=== PATIENT | female | born 1970 | race Caucasian/White ===

== ENCOUNTER → 2017-03-11 | Day surgery (SDC) | payer OTHER ==
[~2017-03-11] MED LIST: KETOROLAC TROMETHAMINE 30 MG/ML (IVP) VIAL IV PUSH ONE; LACTATED RINGER'S 1,000 ML BAG IV ONE; LORT5TAB PO; MIDAZOLAM HCL 2 MG/2 ML VIAL ONE; NAPR250T57 PO; ONDANSETRON HCL 4 MG/2 ML VIAL IV PUSH ONE; PRENTAB72 PO; PROPOFOL 200 MG/20 ML AMP IV ONE; SODIUM CHLORIDE 0.9% 100 ML MINIBAG IV ONE; SODIUM CHLORIDE 0.9% SOLN 1000 ML BTL ONE; TAB-TAB PO; VITA100018 PO; ceFAZolin INJ 1,000 MG VIAL ONE
--- NOTE | 2017-03-11 12:15 | MP ---
cc: ABHINAV ROQUE M.D. DATE OF SURGERY: 03/11/2017 PREOPERATIVE DIAGNOSIS Menorrhagia, submucous uterine fibroid, dysmenorrhea. PROCEDURE Exam under anesthesia. Dilatation and curettage. Hysteroscopic myomectomy with the MyoSure device. Endometrial ablation using the NovaSure device. POSTOPERATIVE DIAGNOSIS Menorrhagia, submucous uterine fibroid, dysmenorrhea. SURGEON Merrick ANESTHESIA General by LMA ESTIMATED BLOOD LOSS None. FLUID DEFICIT 990 cc. OPERATIVE FINDINGS The patient had a posterior 2.5 cm submucous myoma, otherwise no focal abnormality. Endometrial lining was polypoid and homogeneous. Uterus was slightly retroverted. INDICATION FOR PROCEDURE Patient with increasing frequency of heavy painful periods over the last year. Ultrasound obtained revealed a solitary lesion with an endometrial cavity suggesting submucous myoma. Options were discussed. Patient elected for hysteroscopic resection with ablation of the endometrial cavity. The patient received Ancef 2 grams prophylactically. PROCEDURE DESCRIPTION The patient was taken to the operating room in stable condition, underwent general anesthesia with LMA placement. She was carefully positioned in the dorsal lithotomy position using candy-cane stirrups. She had sequentials placed on lower extremities for VTE prophylaxis. She was prepped and draped and a timeout was conducted and agreed by all present in the room. A bivalve speculum was used to examine the cervix after the patient was adequately prepped and draped and endocervical curettings were obtained and sent separately. The cervix had evidence of previous cold knife cone biopsy but no focal abnormality. The cervix was secured with a single-tooth tenaculum and a uterine sound was placed gently to about 9 cm. The cervix was then dilated. A 5 mm hysteroscope was used to examine the cavity. The findings were described above. Resection of the posterior myoma was accomplished without difficulty. This was followed by use of the NovaSure device, generator was set at 6.0 and 3.0 dimensions generating a wattage of 99 ontiveros. Complete electrodesiccation of the cavity was complete. Removal of the NovaSure was uncomplicated. Reinsertion of the hysteroscope with normal saline revealed electrodesiccation of the cavity without any perforation and there was no active bleeding from the myomectomy site. At the completion of the case the final count was correct, the patient was stable, there was no active bleeding. The patient was extubated and taken to the recovery room on room air. MD SYLVIA Jordan/AMADOR /11:26 AM /12:02 PM
== END | disposition home or self-care (01) ==
LOC: ESDC 09:10
PROVIDERS: ATTEND Obstetrics & Gynecology
DX: N92.0 Excessive and frequent menstruation with regular cycle (principal); D25.0 Submucous leiomyoma of uterus; N94.6 Dysmenorrhea, unspecified
CPT/HCPCS: 00952; 58561; 58563; 88305; J0690; J1885; J2250; J2405; J3010; J7120